=== PATIENT | female | born 1950 | race Caucasian/White ===

== ENCOUNTER 2017-07-05 23:59 | Emergency (ER) | payer OTHER ==
[~2017-07-05] VITALS: Ht 162.6 cm; Wt 86.4 kg
[~2017-07-05 23:59] MED LIST: ASCO500 PO; ATEN50TA PO; COLC0.6T69 PO; DIVA500T35 PO; ENAL5TAB PO; FLUP5TAB2 PO; FLUT16H NASAL; FURO20 PO; GLIP5TAB11 PO; LEVO150T11 PO; LORA10TA7 PO; METF500T4 PO; MONT10TA21 PO; MULT1CAP42 PO; OLAN10TA3 PO; OMEP20 PO; PARO20TA41 PO; POTA8TAB4 PO; SIMV40TA5 PO; TRAZ-147 PO
[2017-07-06] MEDS ORDERED: [UNRECOGNIZED DRUG - CODE] OU (00:18)
[2017-07-06] MEDS ORDERED: FLUO30CR36 TP (00:18)
[2017-07-06] MEDS ORDERED: TRIL4 PO (00:18)
[2017-07-06] MEDS ORDERED: LEVO125 PO (00:18)
[2017-07-06] MEDS ORDERED: BECL8.7H NASAL (00:18)
[2017-07-06] MEDS ORDERED: TOLT2CAP27 PO (00:18)
[2017-07-06] MEDS ORDERED: METF500T4 PO (00:18)
[2017-07-06 01:03] LABS: BASOPHILS % (AUTO) 0.7 % (0.0-2.0); EOSINOPHILS % (AUTO) 0.9 % (1.0-6.0); HEMATOCRIT 35.5 % (36-46); HEMOGLOBIN 12.2 g/dL (12.0-16.0); LYMPHOCYTES # (AUTO) 1.4 K/uL (1.0-4.8); LYMPHOCYTES % (AUTO) 40.7 % (22.0-44.0); MEAN CORPUSCULAR HEMOGLOBIN 30.8 pg (26.0-34.0); MEAN CORPUSCULAR HGB CONC 34.3 G/dL (31.0-37.0); MEAN CORPUSCULAR VOLUME 90 fL (80-100); MONOCYTES # (AUTO) 0.5 K/uL (0.1-1.0); MONOCYTES % (AUTO) 13.5 % (2.0-9.0); NEUTROPHILS # (AUTO) 1.6 K/uL (1.8-7.7); NEUTROPHILS % (AUTO) 44.2 % (40.0-70.0); PLATELET COUNT (AUTO) 214 K/uL (150-450); RED BLOOD CELL COUNT(AUTO) 3.96 MIL/uL (4.00-5.20); RED CELL DISTRIBUTION WIDTH 15.1 % (11.5-14.5); WHITE BLOOD COUNT (AUTO) 3.5 K/uL (4.5-11.0)
[2017-07-06 01:16] LABS: ANION GAP 11 mmol/L (8-16); CARBON DIOXIDE 25 mmol/L (22-29); CHLORIDE 102 mmol/L (98-107); CREATININE 1.15 mg/dL (0.60-1.30); GLOMERULAR FILTR. RATE CALC 47 mL/min (>60); POTASSIUM 3.3 mmol/L (3.5-5.1); SODIUM SERUM 138 mmol/L (136-145); UREA NITROGEN, BLOOD 13 mg/dL (7-18)
[2017-07-06 01:24] LABS: AMMONIA 20 umol/L (11-32)
[2017-07-06 01:26] LABS: B-TYPE NATRIURETIC PEPTIDE 26 pg/mL (0-100); TROPONIN I < 0.02 ng/mL (0.00-0.05)
[2017-07-06 01:27] LABS: GLUCOSE,POINT OF CARE 132 MG/DL (70-110)
[2017-07-06 01:27] LABS: ALANINE AMINOTRANSFERASE 1900 U/L (12-78); BILIRUBIN,TOTAL 2.8 mg/dL (0.1-1.0); TOTAL PROTEIN, SERUM 5.9 g/dL (6.4-8.2)
[2017-07-06 01:28] LABS: ASPARTATE AMINOTRANSFERASE 1528 U/L (15-37)
[2017-07-06] MEDS ORDERED: SODIUM CHLORIDE 0.9% 1,000 ML IV ONE (01:45)
[2017-07-06 02:18] LABS: THYROID STIMULATING HORMONE 3.64 uIU/mL (0.36-3.74)
[2017-07-06] MEDS ORDERED: CefTRIAXone 1 GM/DEXTROSE 50 ML IV ONE (03:15)
[2017-07-06] MEDS ORDERED: AZITHROMYCIN 500 MG/NS 250 ML IV ONE (03:15)
[2017-07-06] MEDS ORDERED: DEXTROSE 50%-WATER 25 GM/50 ML SYRINGE IVP PRN (05:30)
[2017-07-06] MEDS ORDERED: TraZODone HCL 100 MG TABLET PO PRN (05:30)
[2017-07-06] MEDS ORDERED: INSULIN ASPART 100 UNITS/ML SQ PRN (05:30)
[2017-07-06] MEDS ORDERED: ONDANSETRON HCL 4 MG/2 ML VIAL IVP PRN (05:45)
[2017-07-06] MEDS ORDERED: IPRATROPIUM BROMIDE 0.5 MG/2.5 ML NEB SOLUTION NEB PRN (05:45)
[2017-07-06] MEDS ORDERED: ALBUTEROL SULFATE 2.5 MG/0.5 ML NEB SOLUTION NEB PRN (05:45)
[2017-07-06] MEDS ORDERED: BISACODYL 10 MG RECTAL RECTAL SUPPOSITORY PR PRN (05:45)
[2017-07-06] MEDS ORDERED: MAGNESIUM HYDROXIDE SUSPENSION 30 ML UDCUP PO PRN (05:45)
[2017-07-06 05:51] LABS: BASOPHILS % (AUTO) 0.8 % (0.0-2.0); EOSINOPHILS % (AUTO) 0.9 % (1.0-6.0); HEMATOCRIT 34.4 % (36-46); HEMOGLOBIN 11.8 g/dL (12.0-16.0); LYMPHOCYTES # (AUTO) 1.3 K/uL (1.0-4.8); LYMPHOCYTES % (AUTO) 38.7 % (22.0-44.0); MEAN CORPUSCULAR HEMOGLOBIN 30.6 pg (26.0-34.0); MEAN CORPUSCULAR HGB CONC 34.4 G/dL (31.0-37.0); MEAN CORPUSCULAR VOLUME 89 fL (80-100); MONOCYTES # (AUTO) 0.4 K/uL (0.1-1.0); MONOCYTES % (AUTO) 13.8 % (2.0-9.0); NEUTROPHILS # (AUTO) 1.5 K/uL (1.8-7.7); NEUTROPHILS % (AUTO) 45.8 % (40.0-70.0); PLATELET COUNT (AUTO) 209 K/uL (150-450); RED BLOOD CELL COUNT(AUTO) 3.86 MIL/uL (4.00-5.20); RED CELL DISTRIBUTION WIDTH 15.3 % (11.5-14.5); WHITE BLOOD COUNT (AUTO) 3.3 K/uL (4.5-11.0)
[2017-07-06 05:52] LABS: ANION GAP 10 mmol/L (8-16); POTASSIUM 3.5 mmol/L (3.5-5.1); UREA NITROGEN, BLOOD 12 mg/dL (7-18)
[2017-07-06 05:53] LABS: CALCIUM, TOTAL 7.5 mg/dL (8.8-10.5); CARBON DIOXIDE 26 mmol/L (22-29); CHLORIDE 104 mmol/L (98-107); CREATININE 0.91 mg/dL (0.60-1.30); GLOMERULAR FILTR. RATE CALC > 60 mL/min (>60); SODIUM SERUM 140 mmol/L (136-145)
[2017-07-06 05:55] LABS: HEMOGLOBIN A1C 7.1 % (4.5-6.2)
[2017-07-06 06:19] LABS: ALANINE AMINOTRANSFERASE 1832 U/L (12-78); ALBUMIN 1.9 g/dL (3.4-5.0); BILIRUBIN,TOTAL 2.8 mg/dL (0.1-1.0); PHOSPHORUS 2.3 mg/dL (2.5-4.9); THYROID STIMULATING HORMONE 3.69 uIU/mL (0.36-3.74); TOTAL PROTEIN, SERUM 5.7 g/dL (6.4-8.2)
[2017-07-06] MEDS ORDERED: LEVOTHYROXINE SODIUM 125 MCG TABLET PO SCH (06:30)
[2017-07-06 06:34] LABS: ASPARTATE AMINOTRANSFERASE 1449 U/L (15-37)
[2017-07-06 06:43] LABS: ACETAMINOPHEN 2 mcg/mL (10-30)
[2017-07-06 07:19] LABS: PROCALCITONIN (PCT) 0.59 ng/mL (<0.50)
[2017-07-06 07:41] VITALS: BP 133/81
[2017-07-06] MEDS ORDERED: PANTOPRAZOLE SODIUM 40 MG DR TABLET PO SCH (09:00)
[2017-07-06] MEDS ORDERED: GLY OU SCH (09:00)
[2017-07-06] MEDS ORDERED: MONTELUKAST SODIUM 10 MG TABLET PO SCH (09:00)
[2017-07-06] MEDS ORDERED: DOCUSATE SODIUM 100 MG CAPSULE PO SCH (09:00)
[2017-07-06] MEDS ORDERED: PERPHENAZINE 4 MG TABLET PO SCH (09:00)
[2017-07-06] MEDS ORDERED: DIVALPROEX SODIUM 500 MG DR TABLET PO SCH (09:00)
[2017-07-06] MEDS ORDERED: HEPARIN SODIUM,PORCINE 5,000 UNITS/ML VIAL SQ SCH (09:00)
[2017-07-06] MEDS ORDERED: [UNRECOGNIZED DRUG - OTHER] OU SCH (09:00)
[2017-07-06] MEDS ORDERED: PARoxetine HCL 20 MG TABLET PO SCH (09:00)
[2017-07-06] MEDS ORDERED: BECLOMETHASONE DIPROPIONATE 160 MCG NASAL SCH (09:00)
[2017-07-06] MEDS ORDERED: TOLTERODINE TARTRATE 2 MG ER CAPSULE PO SCH (09:00)
[2017-07-06] MEDS ORDERED: PHENYLEPHRINE OU SCH (09:00)
[2017-07-06] MEDS ORDERED: MULTIVITAMINS WITH MINERALS, THERAPEUTIC TABLET PO SCH (09:00)
[2017-07-07] MEDS ORDERED: CefTRIAXone 1 GM/DEXTROSE 50 ML IV SCH (03:00)
[2017-07-07] MEDS ORDERED: AZITHROMYCIN 500 MG/NS 250 ML IV SCH (04:00)
[2017-07-07 08:06] LABS: HEPATITIS Bs ANTIGEN SCREEN P Negative (Negative); HEPATITIS C AB SCREEN 0.1 s/co ratio (0.0-0.9)
[2017-07-08] MEDS ORDERED: FLUOROURACIL TP SCH (09:00)
[2017-07-08 22:59] LABS: MYCOPLASMA AB IGG 305 U/mL (0-99)
== END 2017-07-06 09:00 | disposition other institution (70) ==
LOC: EMS 07-06 00:01 → UNDOADMIN 07-06 04:30 → 5S 07-06 04:30 → EMS 07-06 09:00
DX: J44.0 Chronic obstructive pulmonary disease with (acute) lower respiratory infection (principal); F79 Unspecified intellectual disabilities; R74.0 Nonspecific elevation of levels of transaminase and lactic acid dehydrogenase [LDH]; E80.6 Other disorders of bilirubin metabolism; E86.0 Dehydration; E11.65 Type 2 diabetes mellitus with hyperglycemia; I10 Essential (primary) hypertension; R62.7 Adult failure to thrive; Z79.899 Other long term (current) drug therapy
CPT/HCPCS: 36415; 70450; 71010; 74176; 80053; 80061; 80074; 82140; 82962; 83036; 83735; 83880; 84100; 84145; 84439; 84443; 84484; 85025; 87040; 87798; 93005; 96361; 96365; 96367; 99285; G0480; G0481; J0456; J0696; J7030

== ENCOUNTER → 2017-11-13 | Outpatient (CLI) | payer OTHER ==
[~2017-11-13] MED LIST changes: -ASCO500 PO; -ATEN50TA PO; +BECL8.7H NASAL; -COLC0.6T69 PO; -ENAL5TAB PO; +FLUO30CR36 TP; -FLUP5TAB2 PO; -FLUT16H NASAL; -GLIP5TAB11 PO; +LEVO125 PO; -LEVO150T11 PO; -LORA10TA7 PO; -OLAN10TA3 PO; -OMEP20 PO; +PARO-66 PO; -PARO20TA41 PO; -POTA8TAB4 PO; +TOLT2CAP27 PO; +TRIL4 PO; +[UNRECOGNIZED DRUG - CODE] OU
== END | disposition home or self-care (01) ==
LOC: RADPV 10:10
PROVIDERS: ATTEND Internal Medicine
DX: M20.11 Hallux valgus (acquired), right foot (principal); M19.071 Primary osteoarthritis, right ankle and foot; M77.31 Calcaneal spur, right foot; M21.6X1 Other acquired deformities of right foot

== ENCOUNTER 2019-07-20 08:22 | Emergency (ER) | payer OTHER ==
[~2019-07-20] VITALS: Ht 160 cm; Wt 86.4 kg
[~2019-07-20 08:22] MED LIST changes: +DIVA-78 PO; -DIVA500T35 PO; +METF-960 PO; -METF500T4 PO; +TOLT2CAP PO; -TOLT2CAP27 PO; -TRAZ-147 PO; +TRAZ-186 PO
[2019-07-20] MEDS ORDERED: OLAN10TA3 PO (08:31)
[2019-07-20 09:06] LABS: BASOPHILS % (AUTO) 0.7 % (0.0-2.0); EOSINOPHILS % (AUTO) 0.2 % (1.0-6.0); HEMATOCRIT 34.7 % (36-46); HEMOGLOBIN 11.6 g/dL (12.0-16.0); LYMPHOCYTES # (AUTO) 1.2 K/uL (1.0-4.8); MEAN CORPUSCULAR HEMOGLOBIN 31.3 pg (26.0-34.0); MEAN CORPUSCULAR HGB CONC 33.4 G/dL (31.0-37.0); MEAN CORPUSCULAR VOLUME 94 fL (80-100); MONOCYTES # (AUTO) 0.9 K/uL (0.1-1.0); MONOCYTES % (AUTO) 14.7 % (2.0-9.0); NEUTROPHILS # (AUTO) 3.9 K/uL (1.8-7.7); NEUTROPHILS % (AUTO) 64.4 % (40.0-70.0); PLATELET COUNT (AUTO) 158 K/uL (150-450); RED CELL DISTRIBUTION WIDTH 14.1 % (11.5-14.5)
[2019-07-20 09:17] LABS: CREATININE 1.58 mg/dL (0.60-1.30); POTASSIUM 3.9 mmol/L (3.5-5.1)
[2019-07-20 09:20] LABS: PROTHROMBIN TIME 10.8 SEC (9.4-11.6)
[2019-07-20 09:23] LABS: ALBUMIN 2.5 g/dL (3.4-5.0); BILIRUBIN,TOTAL 0.3 mg/dL (0.1-1.0); TOTAL PROTEIN, SERUM 6.8 g/dL (6.4-8.2)
[2019-07-20 10:43] LABS: APPEARANCE,URINE CLEAR (CLEAR); BILIRUBIN,URINE NEGATIVE (NEGATIVE); GLUCOSE, URINE (UA) NEGATIVE (NEGATIVE); KETONES,URINE NEGATIVE (NEGATIVE); LEUKOCYTE ESTERASE ,URINE TRACE (NEGATIVE); NITRATE,URINE NEGATIVE (NEGATIVE); OCCULT BLOOD,URINE NEGATIVE (NEGATIVE); PROTEIN,URINE NEGATIVE (NEGATIVE); UROBILINOGEN,URINE 0.2 mg/dL (<=1.0)
[2019-07-20 10:53] LABS: BACTERIA,URINE None Seen /HPF (None Seen); RBC,URINE None Seen /HPF (0-2); SQUAMOUS EPITHELIAL CELL,UR Few /LPF (None Seen); WBC,URINE 0-2 /HPF (0-5)
[2019-07-20 11:00] VITALS: BP 131/64
== END 2019-07-20 11:15 | disposition home or self-care (01) ==
LOC: EMS 08:23
DX: R10.13 Epigastric pain (principal); I10 Essential (primary) hypertension; E11.9 Type 2 diabetes mellitus without complications; E03.9 Hypothyroidism, unspecified; F20.9 Schizophrenia, unspecified; F31.9 Bipolar disorder, unspecified; J45.909 Unspecified asthma, uncomplicated; Z79.899 Other long term (current) drug therapy; Z79.84 Long term (current) use of oral hypoglycemic drugs
CPT/HCPCS: 93005

== ENCOUNTER 2020-02-02 12:22 | Emergency (ER) | payer OTHER ==
[~2020-02-02] VITALS: Ht 160 cm; Wt 77.0 kg
[~2020-02-02 12:22] MED LIST changes: -FLUO30CR36 TP; +OLAN10TA3 PO; +SIMV-46 PO; -SIMV40TA5 PO
[2020-02-02] MEDS ORDERED: FURO20 PO (12:38)
[2020-02-02 14:09] LABS: GLUCOMETER DEV NAME(LOC) AHU.; GLUCOSE,POINT OF CARE 115 MG/DL (70-110)
[2020-02-02 16:03] VITALS: BP 124/56
== END 2020-02-02 18:25 | disposition home or self-care (01) ==
LOC: EMS 12:27
DX: B34.9 Viral infection, unspecified (principal); E11.9 Type 2 diabetes mellitus without complications; I10 Essential (primary) hypertension; F20.9 Schizophrenia, unspecified; F32.9 Major depressive disorder, single episode, unspecified; Z79.899 Other long term (current) drug therapy; Z98.890 Other specified postprocedural states

== ENCOUNTER 2020-08-27 10:57 | Emergency (ER) | payer OTHER ==
[~2020-08-27] VITALS: Ht 162.6 cm; Wt 72.7 kg
[~2020-08-27 10:57] MED LIST changes: +DIVA-112 PO; -DIVA-78 PO; +MONT-35 PO; -MONT10TA21 PO
[2020-08-27] MEDS ORDERED: 0.9% SODIUM CHLORIDE 10 ML SYRINGE IVP PRN (11:30)
[2020-08-27 11:33] LABS: GLUCOSE,POINT OF CARE 141 MG/DL (70-110)
[2020-08-27 11:46] LABS: EOSINOPHILS % (AUTO) 0.7 % (1.0-6.0); HEMATOCRIT 38.8 % (36-46); HEMOGLOBIN 13.1 g/dL (12.0-16.0); LYMPHOCYTES # (AUTO) 3.2 K/uL (1.0-4.8); LYMPHOCYTES % (AUTO) 43.3 % (22.0-44.0); MEAN CORPUSCULAR HEMOGLOBIN 31.4 pg (26.0-34.0); MEAN CORPUSCULAR HGB CONC 33.9 G/dL (31.0-37.0); MEAN CORPUSCULAR VOLUME 93 fL (80-100); MONOCYTES # (AUTO) 0.6 K/uL (0.1-1.0); MONOCYTES % (AUTO) 8.4 % (2.0-9.0); NEUTROPHILS # (AUTO) 3.5 K/uL (1.8-7.7); NEUTROPHILS % (AUTO) 46.6 % (40.0-70.0); PLATELET COUNT (AUTO) 273 K/uL (150-450); RED BLOOD CELL COUNT(AUTO) 4.18 MIL/uL (4.00-5.20); RED CELL DISTRIBUTION WIDTH 13.4 % (11.5-14.5)
[2020-08-27 11:58] LABS: ANION GAP 10 mmol/L (8-16); CALCIUM, TOTAL 9.8 mg/dL (8.8-10.5); CARBON DIOXIDE 30 mmol/L (22-29); CHLORIDE 106 mmol/L (98-107); CREATININE 1.45 mg/dL (0.60-1.30); GLOMERULAR FILTR. RATE CALC 36 mL/min (>60); GLUCOSE,RANDOM 146 mg/dL (70-110); POTASSIUM 4.3 mmol/L (3.5-5.1); SODIUM SERUM 146 mmol/L (136-145); UREA NITROGEN, BLOOD 37 mg/dL (7-18)
[2020-08-27 11:59] LABS: INR 1.1 (0.9-1.1); PROTHROMBIN TIME 11.5 SEC (9.4-11.6)
[2020-08-27 12:04] LABS: ALANINE AMINOTRANSFERASE 19 U/L (12-78); ALBUMIN 3.2 g/dL (3.4-5.0); ALKALINE PHOSPHATASE 65 U/L (46-116); ASPARTATE AMINOTRANSFERASE 16 U/L (15-37); BILIRUBIN,TOTAL 0.2 mg/dL (0.1-1.0); TOTAL PROTEIN, SERUM 7.2 g/dL (6.4-8.2); VALPROIC ACID 69 mcg/mL (50-100)
[2020-08-27 12:08] LABS: LACTIC ACID 3.4 mmol/L (0.4-2.0)
[2020-08-27 12:10] LABS: B-TYPE NATRIURETIC PEPTIDE 8 pg/mL (0-100)
[2020-08-27 12:12] LABS: APPEARANCE,URINE CLEAR (CLEAR); BILIRUBIN,URINE NEGATIVE (NEGATIVE); GLUCOSE, URINE (UA) NEGATIVE (NEGATIVE); KETONES,URINE TRACE mg/dL (NEGATIVE); LEUKOCYTE ESTERASE ,URINE NEGATIVE (NEGATIVE); NITRATE,URINE NEGATIVE (NEGATIVE); OCCULT BLOOD,URINE NEGATIVE (NEGATIVE); PH,URINE 5.5 (5.0-8.0); PROTEIN,URINE NEGATIVE (NEGATIVE); UROBILINOGEN,URINE 0.2 mg/dL (<=1.0)
[2020-08-27] MEDS ORDERED: SODIUM CHLORIDE 0.9% 1,000 ML IV ONE (12:15)
[2020-08-27 14:17] LABS: GLUCOSE,POINT OF CARE 108 MG/DL (70-110)
[2020-08-27 15:17] VITALS: BP 122/71
== END 2020-08-27 15:20 | disposition home or self-care (01) ==
LOC: EMS 10:59
DX: E86.0 Dehydration (principal); I10 Essential (primary) hypertension; E11.9 Type 2 diabetes mellitus without complications; E03.9 Hypothyroidism, unspecified; E78.00 Pure hypercholesterolemia, unspecified; F20.9 Schizophrenia, unspecified; F32.9 Major depressive disorder, single episode, unspecified; Z79.899 Other long term (current) drug therapy
CPT/HCPCS: 36415; 70450; 71045; 80053; 80164; 81003; 82962; 83605; 83880; 84484; 85025; 85610; 85730; 93005; 96360; 99285; J7030

== ENCOUNTER 2020-08-29 14:00 | Inpatient (IN) | payer OTHER, MEDICAID ==
[~2020-08-29] VITALS: Ht 165.1 cm; Wt 79.6 kg
[2020-08-29 15:08] LABS: MEAN CORPUSCULAR HGB CONC 32.8 G/dL (31.0-37.0); MONOCYTES # (AUTO) 0.7 K/uL (0.1-1.0)
[2020-08-29 15:10] LABS: ANION GAP 8 mmol/L (8-16); CARBON DIOXIDE 27 mmol/L (22-29); CHLORIDE 102 mmol/L (98-107); CREATININE 1.16 mg/dL (0.60-1.30); GLOMERULAR FILTR. RATE CALC 46 mL/min (>60); GLUCOSE,RANDOM 159 mg/dL (70-110); SODIUM SERUM 137 mmol/L (136-145); UREA NITROGEN, BLOOD 21 mg/dL (7-18)
[2020-08-29 15:17] LABS: ALANINE AMINOTRANSFERASE 17 U/L (12-78); ALBUMIN 2.9 g/dL (3.4-5.0); ALKALINE PHOSPHATASE 72 U/L (46-116); ASPARTATE AMINOTRANSFERASE 16 U/L (15-37); BILIRUBIN,TOTAL 0.2 mg/dL (0.1-1.0); TOTAL PROTEIN, SERUM 6.7 g/dL (6.4-8.2)
[2020-08-29 15:56] LABS: BASOPHILS % (AUTO) 0.9 % (0.0-2.0); EOSINOPHILS % (AUTO) 1.5 % (1.0-6.0); HEMATOCRIT 41.6 % (36-46); HEMOGLOBIN 13.7 g/dL (12.0-16.0); LYMPHOCYTES % (AUTO) 40.8 % (22.0-44.0); MEAN CORPUSCULAR HEMOGLOBIN 30.8 pg (26.0-34.0); MEAN CORPUSCULAR VOLUME 94 fL (80-100); MONOCYTES % (AUTO) 6.8 % (2.0-9.0); NEUTROPHILS # (AUTO) 4.9 K/uL (1.8-7.7); RED BLOOD CELL COUNT(AUTO) 4.44 MIL/uL (4.00-5.20); RED CELL DISTRIBUTION WIDTH 13.3 % (11.5-14.5)
[2020-08-29 15:59] LABS: AMPHET/METH SCREEN,URINE NEGATIVE (NEGATIVE); BARBITURATE SCREEN, URINE NEGATIVE (NEGATIVE); BENZODIAZEPINES SCREEN,URINE NEGATIVE (NEGATIVE); CANNABINOID SCREEN,URINE NEGATIVE (NEGATIVE); COCAINE SCREEN,URINE NEGATIVE (NEGATIVE); METHADONE SCREEN, URINE NEGATIVE (NEGATIVE); OPIATE SCREEN,URINE NEGATIVE (NEGATIVE)
[2020-08-29 16:00] LABS: PHENCYCLIDINE SCREEN,URINE NEGATIVE (NEGATIVE)
[2020-08-29 16:09] LABS: PLATELET COUNT (AUTO) 293 K/uL (150-450)
[2020-08-29] MEDS ORDERED: ChlorproMAZINE HCL 50 MG TABLET PO PRN (18:00)
[2020-08-29] MEDS ORDERED: MULT-248 PO (18:06)
[2020-08-29 19:12] LABS: GLUCOSE,POINT OF CARE 142 MG/DL (70-110)
[2020-08-29 19:57] LABS: COVID AG,FIA SOURCE NASAL SWAB
[2020-08-29 22:13] LABS: GLUCOSE,POINT OF CARE 134 MG/DL (70-110)
[2020-08-30] MEDS: ZOLPIDEM TARTRATE 5 MG TABLET PO PRN (01:11)
[2020-08-30] MEDS: LORazepam 0.5 MG TABLET PO PRN (01:11)
[2020-08-30 02:06] VITALS: BP 179/94
[2020-08-30 06:47] LABS: BASOPHILS % (AUTO) 0.9 % (0.0-2.0); EOSINOPHILS % (AUTO) 1.5 % (1.0-6.0); HEMOGLOBIN 13.1 g/dL (12.0-16.0); LYMPHOCYTES # (AUTO) 3.1 K/uL (1.0-4.8); MEAN CORPUSCULAR HGB CONC 33.6 G/dL (31.0-37.0); MEAN CORPUSCULAR VOLUME 92 fL (80-100); MONOCYTES # (AUTO) 0.5 K/uL (0.1-1.0); MONOCYTES % (AUTO) 7.1 % (2.0-9.0); NEUTROPHILS # (AUTO) 3.4 K/uL (1.8-7.7); NEUTROPHILS % (AUTO) 47.5 % (40.0-70.0); PLATELET COUNT (AUTO) 249 K/uL (150-450); RED BLOOD CELL COUNT(AUTO) 4.23 MIL/uL (4.00-5.20); RED CELL DISTRIBUTION WIDTH 13.6 % (11.5-14.5)
[2020-08-30 07:29] LABS: HEMOGLOBIN A1C 6.7 % (3.8-5.6)
[2020-08-30 07:41] LABS: CHOL/HDL RATIO 3.1 (3.9-5.7)
[2020-08-30 08:03] LABS: FREE T4 (FREE THYROXINE) 1.13 ng/dL (0.76-1.46); THYROID STIMULATING HORMONE 1.56 uIU/mL (0.36-3.74)
[2020-08-30 08:58] VITALS: BP 127/61
[2020-08-30] MEDS ORDERED: DOCUSATE SODIUM 100 MG CAPSULE PO PRN (11:00)
[2020-08-30] MEDS ORDERED: CloNIDine HCL 0.1 MG TABLET PO PRN (11:00)
[2020-08-30] MEDS ORDERED: ACETAMINOPHEN 325 MG TABLET PO PRN (11:00)
[2020-08-30] MEDS ORDERED: IBUPROFEN 600 MG TABLET PO PRN (11:00)
[2020-08-30] MEDS ORDERED: PETROLATUM,WHITE 28 GM JELLY TP PRN (11:00)
[2020-08-30] MEDS ORDERED: BENZOCAINE/MENTHOL LOZENGE PO PRN (11:00)
[2020-08-30] MEDS ORDERED: OMEPRAZOLE 20 MG CAPSULE PO PRN (11:00)
[2020-08-30] MEDS ORDERED: MAG HYDROX/AL HYDROX/SIMETH ES 30 ML SUSPENSION UDCUP PO PRN (11:00)
[2020-08-30] MEDS ORDERED: MAGNESIUM HYDROXIDE SUSPENSION 30 ML UDCUP PO PRN (11:00)
[2020-08-30] MEDS ORDERED: ONDANSETRON HCL 4 MG TABLET PO PRN (11:00)
[2020-08-30] MEDS ORDERED: ALBUTEROL SULFATE HFA 90 MCG/PUFF 8 GM INHALER IH PRN (11:00)
[2020-08-30] MEDS ORDERED: LOPERAMIDE HCL 2 MG CAPSULE PO PRN ×2 (11:00→12:00)
[2020-08-30] MEDS ORDERED: BACITRACIN 28 GM OINTMENT TP PRN (11:00)
[2020-08-30] MEDS ORDERED: DEXTROSE 50%-WATER 25 GM/50 ML SYRINGE IVP PRN (11:15)
[2020-08-30] MEDS ORDERED: PROMETHAZINE HCL 25 MG TABLET PO PRN (12:00)
[2020-08-30] MEDS ORDERED: OLANZapine 5 MG RAPDIS TABLET PO PRN (12:00)
[2020-08-30] MEDS ORDERED: HydrOXYzine PAMOATE 50 MG CAPSULE PO PRN (12:00)
[2020-08-30] MEDS ORDERED: TUBERCULIN, PURIFIED PROTEIN DERIVATIVE 5 TU/0.1 ML SYRINGE ID ONE (12:00)
[2020-08-30] MEDS: FUROSEMIDE 20 MG TABLET PO SCH (12:16)
[2020-08-30] MEDS: SIMVASTATIN 40 MG TABLET PO SCH (12:16)
[2020-08-30] MEDS: TOLTERODINE TARTRATE 2 MG ER CAPSULE PO SCH (12:17)
[2020-08-30] MEDS: MONTELUKAST SODIUM 10 MG TABLET PO SCH (12:17)
[2020-08-30 16:03] VITALS: BP 152/77
[2020-08-30] MEDS: THIAMINE 100 MG TABLET PO SCH (17:08)
[2020-08-30] MEDS: DIVALPROEX SODIUM 500 MG ER TABLET PO SCH (17:08)
[2020-08-30 17:14] LABS: GLUCOMETER DEV NAME(LOC) 3E.I 2; GLUCOSE,POINT OF CARE 298 MG/DL (70-110)
[2020-08-30] MEDS: INSULIN LISPRO 100 UNITS/ML SQ PRN ×2 (17:20→20:55)
[2020-08-30] MEDS: MetFORMIN HCL 500 MG TABLET PO SCH (17:35)
[2020-08-30] MEDS: OLANZapine 10 MG RAPDIS TABLET PO SCH (20:22)
[2020-08-30 20:54] LABS: GLUCOMETER DEV NAME(LOC) 3E.I 2; GLUCOSE,POINT OF CARE 182 MG/DL (70-110)
[2020-08-31 00:32] VITALS: BP 135/66
[2020-08-31 05:26] LABS: GLUCOMETER DEV NAME(LOC) 3E.I 2; GLUCOSE,POINT OF CARE 241 MG/DL (70-110)
[2020-08-31 05:45] VITALS: BP 143/108
[2020-08-31] MEDS: MetFORMIN HCL 500 MG TABLET PO SCH ×2 (06:59→16:48)
[2020-08-31] MEDS: LEVOTHYROXINE SODIUM 125 MCG TABLET PO SCH (06:59)
[2020-08-31] MEDS: INSULIN LISPRO 100 UNITS/ML SQ PRN ×4 (07:07→21:26)
[2020-08-31 08:48] VITALS: BP 160/92
[2020-08-31] MEDS ORDERED: FLUoxetine HCL 10 MG CAPSULE PO SCH (09:00)
[2020-08-31] MEDS ORDERED: MULTIVITAMINS WITH MINERALS, THERAPEUTIC TABLET PO SCH (09:00)
[2020-08-31] MEDS: FUROSEMIDE 20 MG TABLET PO SCH (09:46)
[2020-08-31] MEDS: FOLIC ACID 1 MG TABLET PO SCH (09:47)
[2020-08-31] MEDS: DIVALPROEX SODIUM 500 MG ER TABLET PO SCH ×2 (09:47→16:48)
[2020-08-31] MEDS: OMEGA-3/DHA/EPA/FISH OIL 1,000 MG CAPSULE PO SCH (09:47)
[2020-08-31] MEDS: THIAMINE 100 MG TABLET PO SCH ×2 (09:47→16:48)
[2020-08-31] MEDS: MULTIVITAMINS WITH MINERALS, THERAPEUTIC TABLET PO SCH (09:48)
[2020-08-31] MEDS: SIMVASTATIN 40 MG TABLET PO SCH (09:48)
[2020-08-31] MEDS: MONTELUKAST SODIUM 10 MG TABLET PO SCH (09:49)
[2020-08-31] MEDS: TOLTERODINE TARTRATE 2 MG ER CAPSULE PO SCH (09:50)
[2020-08-31 12:25] LABS: GLUCOMETER DEV NAME(LOC) 3E.I 2; GLUCOSE,POINT OF CARE 202 MG/DL (70-110)
[2020-08-31 16:06] VITALS: BP 140/89
[2020-08-31] MEDS: OLANZapine 10 MG RAPDIS TABLET PO SCH (20:29)
[2020-08-31 20:43] LABS: GLUCOMETER DEV NAME(LOC) 3E.I 2; GLUCOSE,POINT OF CARE 209 MG/DL (70-110)
[2020-08-31 20:48] LABS: GLUCOMETER DEV NAME(LOC) 3E.I 2; GLUCOSE,POINT OF CARE 253 MG/DL (70-110)
[2020-09-01 00:01] VITALS: BP 143/77
[2020-09-01] MEDS: LORazepam 0.5 MG TABLET PO PRN ×2 (00:01→20:17)
[2020-09-01] MEDS: ZOLPIDEM TARTRATE 5 MG TABLET PO PRN ×2 (00:01→22:38)
[2020-09-01 05:49] LABS: GLUCOMETER DEV NAME(LOC) 3E.I 2; GLUCOSE,POINT OF CARE 177 MG/DL (70-110)
[2020-09-01] MEDS: MetFORMIN HCL 500 MG TABLET PO SCH ×2 (06:51→17:17)
[2020-09-01] MEDS: LEVOTHYROXINE SODIUM 125 MCG TABLET PO SCH (06:51)
[2020-09-01] MEDS: INSULIN LISPRO 100 UNITS/ML SQ PRN ×4 (06:58→20:41)
[2020-09-01] MEDS: DIVALPROEX SODIUM 500 MG ER TABLET PO SCH ×3 (08:53→16:19)
[2020-09-01] MEDS: OMEGA-3/DHA/EPA/FISH OIL 1,000 MG CAPSULE PO SCH (08:53)
[2020-09-01] MEDS: FOLIC ACID 1 MG TABLET PO SCH (08:53)
[2020-09-01] MEDS: FLUoxetine HCL 20 MG CAPSULE PO SCH (08:53)
[2020-09-01] MEDS: MULTIVITAMINS WITH MINERALS, THERAPEUTIC TABLET PO SCH (08:54)
[2020-09-01] MEDS: MONTELUKAST SODIUM 10 MG TABLET PO SCH (08:54)
[2020-09-01] MEDS: FUROSEMIDE 20 MG TABLET PO SCH (08:54)
[2020-09-01] MEDS: THIAMINE 100 MG TABLET PO SCH ×2 (08:54→16:20)
[2020-09-01] MEDS: SIMVASTATIN 40 MG TABLET PO SCH (08:56)
[2020-09-01] MEDS: TOLTERODINE TARTRATE 2 MG ER CAPSULE PO SCH (08:56)
[2020-09-01 09:00] VITALS: BP 128/87
[2020-09-01 11:37] LABS: GLUCOMETER DEV NAME(LOC) 3E.I 2; GLUCOSE,POINT OF CARE 216 MG/DL (70-110)
[2020-09-01 16:01] VITALS: BP 138/88
[2020-09-01 16:39] LABS: GLUCOMETER DEV NAME(LOC) 3E.I 2; GLUCOSE,POINT OF CARE 234 MG/DL (70-110)
[2020-09-01] MEDS: OLANZapine 10 MG RAPDIS TABLET PO SCH (20:17)
[2020-09-01 20:47] LABS: GLUCOMETER DEV NAME(LOC) 3E.I 2; GLUCOSE,POINT OF CARE 270 MG/DL (70-110)
[2020-09-02 00:14] VITALS: BP 140/68
[2020-09-02 06:27] LABS: GLUCOMETER DEV NAME(LOC) 3E.I 2; GLUCOSE,POINT OF CARE 152 MG/DL (70-110)
[2020-09-02] MEDS: LEVOTHYROXINE SODIUM 125 MCG TABLET PO SCH (06:54)
[2020-09-02] MEDS: INSULIN LISPRO 100 UNITS/ML SQ PRN ×3 (06:54→21:01)
[2020-09-02] MEDS: MetFORMIN HCL 500 MG TABLET PO SCH ×2 (06:54→17:21)
[2020-09-02] MEDS: THIAMINE 100 MG TABLET PO SCH ×2 (08:15→17:22)
[2020-09-02] MEDS: DIVALPROEX SODIUM 500 MG ER TABLET PO SCH ×3 (08:15→17:21)
[2020-09-02] MEDS: MONTELUKAST SODIUM 10 MG TABLET PO SCH (08:15)
[2020-09-02] MEDS: MULTIVITAMINS WITH MINERALS, THERAPEUTIC TABLET PO SCH (08:15)
[2020-09-02] MEDS: OMEGA-3/DHA/EPA/FISH OIL 1,000 MG CAPSULE PO SCH (08:15)
[2020-09-02] MEDS: FOLIC ACID 1 MG TABLET PO SCH (08:15)
[2020-09-02] MEDS: TOLTERODINE TARTRATE 2 MG ER CAPSULE PO SCH (08:16)
[2020-09-02] MEDS: SIMVASTATIN 40 MG TABLET PO SCH (08:16)
[2020-09-02] MEDS: FLUoxetine HCL 20 MG CAPSULE PO SCH (08:16)
[2020-09-02] MEDS: FUROSEMIDE 20 MG TABLET PO SCH (08:16)
[2020-09-02 09:40] VITALS: BP 161/87
[2020-09-02 11:09] LABS: GLUCOMETER DEV NAME(LOC) 3E.I 2; GLUCOSE,POINT OF CARE 142 MG/DL (70-110)
[2020-09-02 16:02] VITALS: BP 138/87
[2020-09-02 17:31] LABS: GLUCOMETER DEV NAME(LOC) 3E.I 2; GLUCOSE,POINT OF CARE 102 MG/DL (70-110)
[2020-09-02] MEDS: OLANZapine 10 MG RAPDIS TABLET PO SCH (20:11)
[2020-09-02 20:26] LABS: GLUCOMETER DEV NAME(LOC) 3E.I 2; GLUCOSE,POINT OF CARE 218 MG/DL (70-110)
[2020-09-02] MEDS: ZOLPIDEM TARTRATE 5 MG TABLET PO PRN (21:59)
[2020-09-03 05:43] LABS: GLUCOMETER DEV NAME(LOC) 3E.I 2; GLUCOSE,POINT OF CARE 140 MG/DL (70-110)
[2020-09-03] MEDS: MetFORMIN HCL 500 MG TABLET PO SCH ×2 (06:41→17:03)
[2020-09-03] MEDS: INSULIN LISPRO 100 UNITS/ML SQ PRN ×4 (06:41→20:58)
[2020-09-03] MEDS: LEVOTHYROXINE SODIUM 125 MCG TABLET PO SCH (06:41)
[2020-09-03 08:46] VITALS: BP 118/62
[2020-09-03] MEDS: DIVALPROEX SODIUM 500 MG ER TABLET PO SCH ×3 (09:22→17:03)
[2020-09-03] MEDS: FUROSEMIDE 20 MG TABLET PO SCH (09:23)
[2020-09-03] MEDS: TOLTERODINE TARTRATE 2 MG ER CAPSULE PO SCH (09:23)
[2020-09-03] MEDS: FOLIC ACID 1 MG TABLET PO SCH (09:23)
[2020-09-03] MEDS: MONTELUKAST SODIUM 10 MG TABLET PO SCH (09:23)
[2020-09-03] MEDS: OMEGA-3/DHA/EPA/FISH OIL 1,000 MG CAPSULE PO SCH (09:23)
[2020-09-03] MEDS: MULTIVITAMINS WITH MINERALS, THERAPEUTIC TABLET PO SCH (09:24)
[2020-09-03] MEDS: FLUoxetine HCL 20 MG CAPSULE PO SCH (09:24)
[2020-09-03] MEDS: SIMVASTATIN 40 MG TABLET PO SCH (09:24)
[2020-09-03] MEDS: THIAMINE 100 MG TABLET PO SCH ×2 (09:25→17:03)
[2020-09-03 11:47] LABS: GLUCOMETER DEV NAME(LOC) 3E.I 2; GLUCOSE,POINT OF CARE 182 MG/DL (70-110)
[2020-09-03 16:02] VITALS: BP 148/77
[2020-09-03 16:36] LABS: GLUCOMETER DEV NAME(LOC) 3E.I 2; GLUCOSE,POINT OF CARE 228 MG/DL (70-110)
[2020-09-03] MEDS: OLANZapine 10 MG RAPDIS TABLET PO SCH (20:17)
[2020-09-03 20:32] LABS: GLUCOMETER DEV NAME(LOC) 3E.I 2; GLUCOSE,POINT OF CARE 163 MG/DL (70-110)
[2020-09-03] MEDS: ZOLPIDEM TARTRATE 5 MG TABLET PO PRN (22:46)
[2020-09-04] VITALS: BP 143/77
[2020-09-04] MEDS: LEVOTHYROXINE SODIUM 125 MCG TABLET PO SCH (06:45)
[2020-09-04] MEDS: MetFORMIN HCL 500 MG TABLET PO SCH ×2 (06:46→17:18)
[2020-09-04] MEDS: INSULIN LISPRO 100 UNITS/ML SQ PRN ×4 (06:47→20:32)
[2020-09-04] MEDS: FOLIC ACID 1 MG TABLET PO SCH (09:04)
[2020-09-04] MEDS: THIAMINE 100 MG TABLET PO SCH ×2 (09:04→15:56)
[2020-09-04] MEDS: MULTIVITAMINS WITH MINERALS, THERAPEUTIC TABLET PO SCH (09:05)
[2020-09-04] MEDS: OMEGA-3/DHA/EPA/FISH OIL 1,000 MG CAPSULE PO SCH (09:05)
[2020-09-04] MEDS: DIVALPROEX SODIUM 500 MG ER TABLET PO SCH ×3 (09:05→15:56)
[2020-09-04] MEDS: FUROSEMIDE 20 MG TABLET PO SCH (09:05)
[2020-09-04] MEDS: SIMVASTATIN 40 MG TABLET PO SCH (09:05)
[2020-09-04] MEDS: FLUoxetine HCL 20 MG CAPSULE PO SCH (09:05)
[2020-09-04] MEDS: MONTELUKAST SODIUM 10 MG TABLET PO SCH (09:05)
[2020-09-04] MEDS: TOLTERODINE TARTRATE 2 MG ER CAPSULE PO SCH (09:05)
[2020-09-04 09:21] LABS: GLUCOMETER DEV NAME(LOC) 3E.I 2; GLUCOSE,POINT OF CARE 126 MG/DL (70-110)
[2020-09-04 09:44] VITALS: BP 157/73
[2020-09-04 12:02] LABS: GLUCOMETER DEV NAME(LOC) 3E.I 2; GLUCOSE,POINT OF CARE 211 MG/DL (70-110)
[2020-09-04 16:05] VITALS: BP 152/96
[2020-09-04 16:05] LABS: GLUCOMETER DEV NAME(LOC) 3E.I 2; GLUCOSE,POINT OF CARE 154 MG/DL (70-110)
[2020-09-04] MEDS: AMANTADINE HCL 100 MG CAPSULE PO SCH (17:18)
[2020-09-04] MEDS: OLANZapine 10 MG RAPDIS TABLET PO SCH (20:02)
[2020-09-04] MEDS: LORazepam 0.5 MG TABLET PO PRN (20:02)
[2020-09-05 01:51] LABS: GLUCOMETER DEV NAME(LOC) 3E.I 2; GLUCOSE,POINT OF CARE 160 MG/DL (70-110)
[2020-09-05 06:28] LABS: BASOPHILS % (AUTO) 1.1 % (0.0-2.0); EOSINOPHILS % (AUTO) 2.2 % (1.0-6.0); HEMATOCRIT 35.9 % (36-46); HEMOGLOBIN 12.9 g/dL (12.0-16.0); LYMPHOCYTES # (AUTO) 4.3 K/uL (1.0-4.8); LYMPHOCYTES % (AUTO) 48.4 % (22.0-44.0); MEAN CORPUSCULAR HEMOGLOBIN 32.4 pg (26.0-34.0); MEAN CORPUSCULAR VOLUME 90 fL (80-100); MONOCYTES # (AUTO) 0.6 K/uL (0.1-1.0); MONOCYTES % (AUTO) 7.2 % (2.0-9.0); NEUTROPHILS # (AUTO) 3.6 K/uL (1.8-7.7); NEUTROPHILS % (AUTO) 41.1 % (40.0-70.0); PLATELET COUNT (AUTO) 270 K/uL (150-450); RED BLOOD CELL COUNT(AUTO) 3.99 MIL/uL (4.00-5.20); RED CELL DISTRIBUTION WIDTH 13.4 % (11.5-14.5)
[2020-09-05] MEDS: LEVOTHYROXINE SODIUM 125 MCG TABLET PO SCH (06:48)
[2020-09-05] MEDS: MetFORMIN HCL 500 MG TABLET PO SCH ×2 (06:48→16:14)
[2020-09-05] MEDS: INSULIN LISPRO 100 UNITS/ML SQ PRN ×3 (06:54→20:58)
[2020-09-05 07:01] LABS: ALBUMIN 2.5 g/dL (3.4-5.0); BILIRUBIN,TOTAL 0.2 mg/dL (0.1-1.0); CALCIUM, TOTAL 9.3 mg/dL (8.8-10.5); CREATININE 1.06 mg/dL (0.60-1.30); POTASSIUM 4.5 mmol/L (3.5-5.1); TOTAL PROTEIN, SERUM 5.6 g/dL (6.4-8.2)
[2020-09-05] MEDS: DIVALPROEX SODIUM 500 MG ER TABLET PO SCH ×3 (08:27→16:13)
[2020-09-05] MEDS: FUROSEMIDE 20 MG TABLET PO SCH (08:27)
[2020-09-05] MEDS: FOLIC ACID 1 MG TABLET PO SCH (08:27)
[2020-09-05] MEDS: THIAMINE 100 MG TABLET PO SCH ×2 (08:27→16:13)
[2020-09-05] MEDS: MULTIVITAMINS WITH MINERALS, THERAPEUTIC TABLET PO SCH (08:27)
[2020-09-05] MEDS: AMANTADINE HCL 100 MG CAPSULE PO SCH ×2 (08:28→16:14)
[2020-09-05] MEDS: TOLTERODINE TARTRATE 2 MG ER CAPSULE PO SCH (08:29)
[2020-09-05] MEDS: SIMVASTATIN 40 MG TABLET PO SCH (08:29)
[2020-09-05] MEDS: MONTELUKAST SODIUM 10 MG TABLET PO SCH (08:29)
[2020-09-05] MEDS: OMEGA-3/DHA/EPA/FISH OIL 1,000 MG CAPSULE PO SCH (08:31)
[2020-09-05] MEDS: FLUoxetine HCL 10 MG CAPSULE PO SCH (08:32)
[2020-09-05 08:36] VITALS: BP 179/107
[2020-09-05 11:26] LABS: GLUCOMETER DEV NAME(LOC) 3E.I 2; GLUCOSE,POINT OF CARE 117 MG/DL (70-110)
[2020-09-05 11:26] LABS: GLUCOMETER DEV NAME(LOC) 3E.I 2; GLUCOSE,POINT OF CARE 133 MG/DL (70-110)
[2020-09-05 16:00] VITALS: BP 130/83
[2020-09-05 16:37] LABS: GLUCOMETER DEV NAME(LOC) 3E.I 2; GLUCOSE,POINT OF CARE 101 MG/DL (70-110)
[2020-09-05] MEDS: OLANZapine 10 MG RAPDIS TABLET PO SCH (20:42)
[2020-09-05 20:52] LABS: GLUCOMETER DEV NAME(LOC) 3E.I 2; GLUCOSE,POINT OF CARE 161 MG/DL (70-110)
[2020-09-06] VITALS: BP 145/85
[2020-09-06] MEDS: LORazepam 0.5 MG TABLET PO PRN ×2 (03:50→20:56)
[2020-09-06 06:12] LABS: GLUCOMETER DEV NAME(LOC) 3E.I 2; GLUCOSE,POINT OF CARE 132 MG/DL (70-110)
[2020-09-06] MEDS: MetFORMIN HCL 500 MG TABLET PO SCH ×2 (06:46→17:20)
[2020-09-06] MEDS: LEVOTHYROXINE SODIUM 125 MCG TABLET PO SCH (06:46)
[2020-09-06] MEDS: INSULIN LISPRO 100 UNITS/ML SQ PRN ×4 (07:27→21:04)
[2020-09-06 08:07] VITALS: BP 151/80
[2020-09-06] MEDS: LISINOPRIL 20 MG TABLET PO SCH (08:54)
[2020-09-06] MEDS: MULTIVITAMINS WITH MINERALS, THERAPEUTIC TABLET PO SCH (08:54)
[2020-09-06] MEDS: OMEGA-3/DHA/EPA/FISH OIL 1,000 MG CAPSULE PO SCH (08:54)
[2020-09-06] MEDS: DIVALPROEX SODIUM 500 MG ER TABLET PO SCH ×3 (08:54→16:38)
[2020-09-06] MEDS: TOLTERODINE TARTRATE 2 MG ER CAPSULE PO SCH (08:55)
[2020-09-06] MEDS: FUROSEMIDE 20 MG TABLET PO SCH (08:55)
[2020-09-06] MEDS: THIAMINE 100 MG TABLET PO SCH ×2 (08:55→16:38)
[2020-09-06] MEDS: FLUoxetine HCL 10 MG CAPSULE PO SCH (08:56)
[2020-09-06] MEDS: AMANTADINE HCL 100 MG CAPSULE PO SCH ×2 (08:56→16:38)
[2020-09-06] MEDS: SIMVASTATIN 40 MG TABLET PO SCH (08:56)
[2020-09-06] MEDS: MONTELUKAST SODIUM 10 MG TABLET PO SCH (08:57)
[2020-09-06] MEDS: FOLIC ACID 1 MG TABLET PO SCH (08:58)
[2020-09-06 11:36] LABS: GLUCOMETER DEV NAME(LOC) 3E.I 2; GLUCOSE,POINT OF CARE 132 MG/DL (70-110)
[2020-09-06 16:07] LABS: GLUCOMETER DEV NAME(LOC) 3E.I 2; GLUCOSE,POINT OF CARE 256 MG/DL (70-110)
[2020-09-06 16:18] VITALS: BP 100/66
[2020-09-06] MEDS: OLANZapine 10 MG RAPDIS TABLET PO SCH (20:56)
[2020-09-06 21:13] LABS: GLUCOMETER DEV NAME(LOC) 3E.I 2; GLUCOSE,POINT OF CARE 153 MG/DL (70-110)
[2020-09-07 05:18] LABS: GLUCOMETER DEV NAME(LOC) 3E.I 2; GLUCOSE,POINT OF CARE 146 MG/DL (70-110)
[2020-09-07] MEDS: MetFORMIN HCL 500 MG TABLET PO SCH ×2 (06:54→16:57)
[2020-09-07] MEDS: LEVOTHYROXINE SODIUM 125 MCG TABLET PO SCH (06:54)
[2020-09-07] MEDS: INSULIN LISPRO 100 UNITS/ML SQ PRN ×3 (07:01→17:42)
[2020-09-07 08:14] VITALS: BP 132/80
[2020-09-07] MEDS: DIVALPROEX SODIUM 500 MG ER TABLET PO SCH ×3 (08:20→16:57)
[2020-09-07] MEDS: FUROSEMIDE 20 MG TABLET PO SCH (08:20)
[2020-09-07] MEDS: OMEGA-3/DHA/EPA/FISH OIL 1,000 MG CAPSULE PO SCH (08:20)
[2020-09-07] MEDS: FOLIC ACID 1 MG TABLET PO SCH (08:21)
[2020-09-07] MEDS: MULTIVITAMINS WITH MINERALS, THERAPEUTIC TABLET PO SCH (08:21)
[2020-09-07] MEDS: THIAMINE 100 MG TABLET PO SCH ×2 (08:21→16:57)
[2020-09-07] MEDS: FLUoxetine HCL 20 MG CAPSULE PO SCH (08:21)
[2020-09-07] MEDS: MONTELUKAST SODIUM 10 MG TABLET PO SCH (08:21)
[2020-09-07] MEDS: TOLTERODINE TARTRATE 2 MG ER CAPSULE PO SCH (08:21)
[2020-09-07] MEDS: AMANTADINE HCL 100 MG CAPSULE PO SCH ×2 (08:21→16:57)
[2020-09-07] MEDS: LISINOPRIL 20 MG TABLET PO SCH (08:21)
[2020-09-07] MEDS: SIMVASTATIN 40 MG TABLET PO SCH (08:28)
[2020-09-07 11:32] LABS: GLUCOMETER DEV NAME(LOC) 3E.I 2; GLUCOSE,POINT OF CARE 115 MG/DL (70-110)
[2020-09-07 16:16] VITALS: BP 140/88
[2020-09-07 17:27] LABS: GLUCOMETER DEV NAME(LOC) 3E.I 2; GLUCOSE,POINT OF CARE 238 MG/DL (70-110)
[2020-09-07] MEDS: OLANZapine 10 MG RAPDIS TABLET PO SCH (20:14)
[2020-09-07 21:04] LABS: GLUCOMETER DEV NAME(LOC) 3E.I 2; GLUCOSE,POINT OF CARE 121 MG/DL (70-110)
[2020-09-08 05:26] LABS: GLUCOMETER DEV NAME(LOC) 3E.I 2; GLUCOSE,POINT OF CARE 135 MG/DL (70-110)
[2020-09-08] MEDS: MetFORMIN HCL 500 MG TABLET PO SCH ×2 (06:35→16:50)
[2020-09-08] MEDS: LEVOTHYROXINE SODIUM 125 MCG TABLET PO SCH (06:35)
[2020-09-08] MEDS: INSULIN LISPRO 100 UNITS/ML SQ PRN ×4 (06:46→21:11)
[2020-09-08 08:08] VITALS: BP 119/67
[2020-09-08] MEDS: THIAMINE 100 MG TABLET PO SCH ×2 (09:01→16:30)
[2020-09-08] MEDS: FOLIC ACID 1 MG TABLET PO SCH (09:01)
[2020-09-08] MEDS: FLUoxetine HCL 20 MG CAPSULE PO SCH (09:01)
[2020-09-08] MEDS: LISINOPRIL 20 MG TABLET PO SCH (09:01)
[2020-09-08] MEDS: OMEGA-3/DHA/EPA/FISH OIL 1,000 MG CAPSULE PO SCH (09:01)
[2020-09-08] MEDS: FUROSEMIDE 20 MG TABLET PO SCH (09:01)
[2020-09-08] MEDS: DIVALPROEX SODIUM 500 MG ER TABLET PO SCH ×3 (09:01→16:30)
[2020-09-08] MEDS: MONTELUKAST SODIUM 10 MG TABLET PO SCH (09:01)
[2020-09-08] MEDS: MULTIVITAMINS WITH MINERALS, THERAPEUTIC TABLET PO SCH (09:01)
[2020-09-08] MEDS: AMANTADINE HCL 100 MG CAPSULE PO SCH ×2 (09:02→16:30)
[2020-09-08] MEDS: SIMVASTATIN 40 MG TABLET PO SCH (09:02)
[2020-09-08] MEDS: TOLTERODINE TARTRATE 2 MG ER CAPSULE PO SCH (09:02)
[2020-09-08] MEDS ORDERED: DIVA-80 PO (10:19)
[2020-09-08] MEDS ORDERED: AMAN-6 PO (10:19)
[2020-09-08] MEDS ORDERED: OMEG-135 PO (10:19)
[2020-09-08] MEDS ORDERED: FLUO-191 PO (10:19)
[2020-09-08] MEDS ORDERED: OLAN10TA22 PO (10:19)
[2020-09-08 11:25] LABS: GLUCOMETER DEV NAME(LOC) 3E.I 2; GLUCOSE,POINT OF CARE 146 MG/DL (70-110)
[2020-09-08 16:37] VITALS: BP 121/60
[2020-09-08 17:24] LABS: GLUCOMETER DEV NAME(LOC) 3E.I 2; GLUCOSE,POINT OF CARE 187 MG/DL (70-110)
[2020-09-08] MEDS: OLANZapine 10 MG RAPDIS TABLET PO SCH (20:28)
[2020-09-08 21:20] LABS: GLUCOMETER DEV NAME(LOC) 3E.I 2; GLUCOSE,POINT OF CARE 152 MG/DL (70-110)
[2020-09-09 00:04] VITALS: BP 112/62
[2020-09-09 05:38] LABS: GLUCOMETER DEV NAME(LOC) 3E.I 2; GLUCOSE,POINT OF CARE 141 MG/DL (70-110)
[2020-09-09] MEDS: LEVOTHYROXINE SODIUM 125 MCG TABLET PO SCH (06:52)
[2020-09-09] MEDS: MetFORMIN HCL 500 MG TABLET PO SCH ×2 (06:52→16:40)
[2020-09-09] MEDS: INSULIN LISPRO 100 UNITS/ML SQ PRN ×4 (06:53→21:18)
[2020-09-09] MEDS: FOLIC ACID 1 MG TABLET PO SCH (08:03)
[2020-09-09] MEDS: SIMVASTATIN 40 MG TABLET PO SCH (08:03)
[2020-09-09] MEDS: MULTIVITAMINS WITH MINERALS, THERAPEUTIC TABLET PO SCH (08:03)
[2020-09-09] MEDS: MONTELUKAST SODIUM 10 MG TABLET PO SCH (08:03)
[2020-09-09] MEDS: FUROSEMIDE 20 MG TABLET PO SCH (08:03)
[2020-09-09] MEDS: LISINOPRIL 20 MG TABLET PO SCH (08:03)
[2020-09-09] MEDS: TOLTERODINE TARTRATE 2 MG ER CAPSULE PO SCH (08:03)
[2020-09-09] MEDS: AMANTADINE HCL 100 MG CAPSULE PO SCH ×2 (08:04→16:40)
[2020-09-09] MEDS: FLUoxetine HCL 20 MG CAPSULE PO SCH (08:04)
[2020-09-09] MEDS: OMEGA-3/DHA/EPA/FISH OIL 1,000 MG CAPSULE PO SCH (08:04)
[2020-09-09] MEDS: THIAMINE 100 MG TABLET PO SCH (08:04)
[2020-09-09] MEDS: DIVALPROEX SODIUM 500 MG ER TABLET PO SCH ×3 (08:04→16:40)
[2020-09-09] MEDS ORDERED: FOLI0.4T92 PO (09:09)
[2020-09-09 09:15] VITALS: BP 166/79
[2020-09-09] MEDS ORDERED: LISI-662 PO (09:23)
[2020-09-09 11:19] LABS: GLUCOMETER DEV NAME(LOC) 3E.I 2; GLUCOSE,POINT OF CARE 197 MG/DL (70-110)
[2020-09-09 16:00] VITALS: BP 124/71
[2020-09-09 16:52] LABS: GLUCOMETER DEV NAME(LOC) 3E.I 2; GLUCOSE,POINT OF CARE 182 MG/DL (70-110)
[2020-09-09] MEDS: OLANZapine 10 MG RAPDIS TABLET PO SCH (20:28)
[2020-09-09 20:30] LABS: GLUCOMETER DEV NAME(LOC) 3E.I 2; GLUCOSE,POINT OF CARE 210 MG/DL (70-110)
[2020-09-10 05:19] VITALS: BP 129/60
[2020-09-10] MEDS: LEVOTHYROXINE SODIUM 125 MCG TABLET PO SCH (06:34)
[2020-09-10] MEDS: MetFORMIN HCL 500 MG TABLET PO SCH ×2 (06:36→17:28)
[2020-09-10] MEDS: INSULIN LISPRO 100 UNITS/ML SQ PRN ×3 (06:38→21:36)
[2020-09-10] MEDS: OMEGA-3/DHA/EPA/FISH OIL 1,000 MG CAPSULE PO SCH (08:54)
[2020-09-10] MEDS: LISINOPRIL 20 MG TABLET PO SCH (08:55)
[2020-09-10] MEDS: MULTIVITAMINS WITH MINERALS, THERAPEUTIC TABLET PO SCH (08:55)
[2020-09-10] MEDS: FLUoxetine HCL 20 MG CAPSULE PO SCH (08:55)
[2020-09-10] MEDS: DIVALPROEX SODIUM 500 MG ER TABLET PO SCH ×3 (08:55→17:11)
[2020-09-10] MEDS: MONTELUKAST SODIUM 10 MG TABLET PO SCH (08:56)
[2020-09-10] MEDS: SIMVASTATIN 40 MG TABLET PO SCH (08:56)
[2020-09-10] MEDS: TOLTERODINE TARTRATE 2 MG ER CAPSULE PO SCH (08:56)
[2020-09-10] MEDS: AMANTADINE HCL 100 MG CAPSULE PO SCH ×2 (08:57→17:11)
[2020-09-10] MEDS: FUROSEMIDE 20 MG TABLET PO SCH (08:59)
[2020-09-10 09:22] VITALS: BP 117/67
[2020-09-10 11:31] LABS: GLUCOMETER DEV NAME(LOC) 3E.I 2; GLUCOSE,POINT OF CARE 133 MG/DL (70-110)
[2020-09-10 11:31] LABS: GLUCOMETER DEV NAME(LOC) 3E.I 2; GLUCOSE,POINT OF CARE 169 MG/DL (70-110)
[2020-09-10 16:01] VITALS: BP 120/78
[2020-09-10 17:30] LABS: GLUCOMETER DEV NAME(LOC) 3E.I 2; GLUCOSE,POINT OF CARE 100 MG/DL (70-110)
[2020-09-10] MEDS: OLANZapine 10 MG RAPDIS TABLET PO SCH (20:34)
[2020-09-10 20:45] LABS: GLUCOMETER DEV NAME(LOC) 3E.I 2; GLUCOSE,POINT OF CARE 165 MG/DL (70-110)
[2020-09-10] MEDS: LORazepam 0.5 MG TABLET PO PRN (21:37)
[2020-09-11 00:12] VITALS: BP 131/60
[2020-09-11 06:04] LABS: GLUCOMETER DEV NAME(LOC) 3E.I 2; GLUCOSE,POINT OF CARE 115 MG/DL (70-110)
[2020-09-11] MEDS: LEVOTHYROXINE SODIUM 125 MCG TABLET PO SCH (06:33)
[2020-09-11] MEDS: MetFORMIN HCL 500 MG TABLET PO SCH ×2 (06:33→17:37)
[2020-09-11 08:00] VITALS: BP 143/102
[2020-09-11] MEDS: MULTIVITAMINS WITH MINERALS, THERAPEUTIC TABLET PO SCH (08:34)
[2020-09-11] MEDS: DIVALPROEX SODIUM 500 MG ER TABLET PO SCH ×3 (08:34→16:26)
[2020-09-11] MEDS: LISINOPRIL 20 MG TABLET PO SCH (08:35)
[2020-09-11] MEDS: SIMVASTATIN 40 MG TABLET PO SCH (08:35)
[2020-09-11] MEDS: OMEGA-3/DHA/EPA/FISH OIL 1,000 MG CAPSULE PO SCH (08:35)
[2020-09-11] MEDS: FLUoxetine HCL 20 MG CAPSULE PO SCH (08:35)
[2020-09-11] MEDS: AMANTADINE HCL 100 MG CAPSULE PO SCH ×2 (08:35→16:26)
[2020-09-11] MEDS: MONTELUKAST SODIUM 10 MG TABLET PO SCH (08:35)
[2020-09-11] MEDS: FUROSEMIDE 20 MG TABLET PO SCH (08:35)
[2020-09-11] MEDS: TOLTERODINE TARTRATE 2 MG ER CAPSULE PO SCH (08:36)
[2020-09-11 11:41] LABS: GLUCOMETER DEV NAME(LOC) 3E.I 2; GLUCOSE,POINT OF CARE 126 MG/DL (70-110)
[2020-09-11] MEDS: INSULIN LISPRO 100 UNITS/ML SQ PRN ×3 (11:46→21:26)
[2020-09-11 16:00] VITALS: BP 124/61
[2020-09-11 16:43] LABS: GLUCOMETER DEV NAME(LOC) 3E.I 2; GLUCOSE,POINT OF CARE 167 MG/DL (70-110)
[2020-09-11] MEDS: OLANZapine 10 MG RAPDIS TABLET PO SCH (20:05)
[2020-09-11 20:20] LABS: GLUCOMETER DEV NAME(LOC) 3E.I 2; GLUCOSE,POINT OF CARE 165 MG/DL (70-110)
[2020-09-12 06:21] LABS: GLUCOMETER DEV NAME(LOC) 3E.I 2; GLUCOSE,POINT OF CARE 105 MG/DL (70-110)
[2020-09-12] MEDS: LEVOTHYROXINE SODIUM 125 MCG TABLET PO SCH (06:35)
[2020-09-12] MEDS: MetFORMIN HCL 500 MG TABLET PO SCH ×2 (06:35→17:37)
[2020-09-12 08:42] VITALS: BP 131/72
[2020-09-12] MEDS: TOLTERODINE TARTRATE 2 MG ER CAPSULE PO SCH (08:51)
[2020-09-12] MEDS: LISINOPRIL 20 MG TABLET PO SCH (08:51)
[2020-09-12] MEDS: DIVALPROEX SODIUM 500 MG ER TABLET PO SCH ×3 (08:51→16:19)
[2020-09-12] MEDS: SIMVASTATIN 40 MG TABLET PO SCH (08:51)
[2020-09-12] MEDS: MONTELUKAST SODIUM 10 MG TABLET PO SCH (08:51)
[2020-09-12] MEDS: FUROSEMIDE 20 MG TABLET PO SCH (08:51)
[2020-09-12] MEDS: FLUoxetine HCL 20 MG CAPSULE PO SCH (08:51)
[2020-09-12] MEDS: OMEGA-3/DHA/EPA/FISH OIL 1,000 MG CAPSULE PO SCH (08:51)
[2020-09-12] MEDS: MULTIVITAMINS WITH MINERALS, THERAPEUTIC TABLET PO SCH (08:51)
[2020-09-12] MEDS: AMANTADINE HCL 100 MG CAPSULE PO SCH ×2 (08:51→16:19)
[2020-09-12 11:28] LABS: GLUCOMETER DEV NAME(LOC) 3E.I 2; GLUCOSE,POINT OF CARE 117 MG/DL (70-110)
[2020-09-12 16:30] VITALS: BP 159/88
[2020-09-12 16:42] LABS: GLUCOMETER DEV NAME(LOC) 3E.I 2; GLUCOSE,POINT OF CARE 157 MG/DL (70-110)
[2020-09-12] MEDS: INSULIN LISPRO 100 UNITS/ML SQ PRN (17:39)
[2020-09-12] MEDS: OLANZapine 10 MG RAPDIS TABLET PO SCH (20:13)
[2020-09-12 20:26] LABS: GLUCOMETER DEV NAME(LOC) 3E.I 2; GLUCOSE,POINT OF CARE 116 MG/DL (70-110)
[2020-09-13 02:55] VITALS: BP 124/68
[2020-09-13 06:11] LABS: GLUCOMETER DEV NAME(LOC) 3E.I 2; GLUCOSE,POINT OF CARE 111 MG/DL (70-110)
[2020-09-13] MEDS: LEVOTHYROXINE SODIUM 125 MCG TABLET PO SCH (07:22)
[2020-09-13] MEDS: MetFORMIN HCL 500 MG TABLET PO SCH ×2 (07:23→17:27)
[2020-09-13 08:00] VITALS: BP 84/53
[2020-09-13 09:30] VITALS: BP 133/89
[2020-09-13] MEDS: FUROSEMIDE 20 MG TABLET PO SCH (09:45)
[2020-09-13] MEDS: LISINOPRIL 20 MG TABLET PO SCH (09:45)
[2020-09-13] MEDS: FLUoxetine HCL 20 MG CAPSULE PO SCH (09:45)
[2020-09-13] MEDS: AMANTADINE HCL 100 MG CAPSULE PO SCH ×2 (09:46→17:06)
[2020-09-13] MEDS: MULTIVITAMINS WITH MINERALS, THERAPEUTIC TABLET PO SCH (09:46)
[2020-09-13] MEDS: OMEGA-3/DHA/EPA/FISH OIL 1,000 MG CAPSULE PO SCH (09:46)
[2020-09-13] MEDS: DIVALPROEX SODIUM 500 MG ER TABLET PO SCH ×3 (09:46→17:06)
[2020-09-13] MEDS: SIMVASTATIN 40 MG TABLET PO SCH (09:46)
[2020-09-13] MEDS: MONTELUKAST SODIUM 10 MG TABLET PO SCH (09:46)
[2020-09-13] MEDS: TOLTERODINE TARTRATE 2 MG ER CAPSULE PO SCH (09:46)
[2020-09-13] MEDS: INSULIN LISPRO 100 UNITS/ML SQ PRN ×3 (11:50→21:35)
[2020-09-13 16:00] VITALS: BP_SYST 110; BP_SYST 133; BP_DIAS 65; BP_DIAS 68
[2020-09-13 16:40] LABS: GLUCOMETER DEV NAME(LOC) 3E.I 2; GLUCOSE,POINT OF CARE 167 MG/DL (70-110)
[2020-09-13 17:22] LABS: GLUCOMETER DEV NAME(LOC) 3E.I 2; GLUCOSE,POINT OF CARE 171 MG/DL (70-110)
[2020-09-13] MEDS: OLANZapine 10 MG RAPDIS TABLET PO SCH (21:14)
[2020-09-13 21:36] LABS: GLUCOMETER DEV NAME(LOC) 3E.I 2; GLUCOSE,POINT OF CARE 153 MG/DL (70-110)
[2020-09-14 05:37] LABS: GLUCOMETER DEV NAME(LOC) 3E.I 2; GLUCOSE,POINT OF CARE 114 MG/DL (70-110)
[2020-09-14] MEDS: LEVOTHYROXINE SODIUM 125 MCG TABLET PO SCH (07:02)
[2020-09-14] MEDS: MetFORMIN HCL 500 MG TABLET PO SCH ×2 (07:02→17:29)
[2020-09-14] MEDS: INSULIN LISPRO 100 UNITS/ML SQ PRN ×4 (07:06→21:46)
[2020-09-14] MEDS: DIVALPROEX SODIUM 500 MG ER TABLET PO SCH ×3 (08:38→16:40)
[2020-09-14] MEDS: OMEGA-3/DHA/EPA/FISH OIL 1,000 MG CAPSULE PO SCH (08:38)
[2020-09-14] MEDS: FLUoxetine HCL 20 MG CAPSULE PO SCH (08:38)
[2020-09-14] MEDS: MULTIVITAMINS WITH MINERALS, THERAPEUTIC TABLET PO SCH (08:39)
[2020-09-14] MEDS: FUROSEMIDE 20 MG TABLET PO SCH (08:39)
[2020-09-14] MEDS: TOLTERODINE TARTRATE 2 MG ER CAPSULE PO SCH (08:40)
[2020-09-14] MEDS: MONTELUKAST SODIUM 10 MG TABLET PO SCH (08:40)
[2020-09-14] MEDS: AMANTADINE HCL 100 MG CAPSULE PO SCH ×2 (08:40→16:40)
[2020-09-14] MEDS: SIMVASTATIN 40 MG TABLET PO SCH (08:43)
[2020-09-14] MEDS: LISINOPRIL 20 MG TABLET PO SCH (08:44)
[2020-09-14 08:45] VITALS: BP 108/54
[2020-09-14 11:40] LABS: GLUCOMETER DEV NAME(LOC) 3E.I 2; GLUCOSE,POINT OF CARE 236 MG/DL (70-110)
[2020-09-14 16:00] VITALS: BP 123/73
[2020-09-14 16:54] LABS: GLUCOMETER DEV NAME(LOC) 3E.I 2; GLUCOSE,POINT OF CARE 132 MG/DL (70-110)
[2020-09-14] MEDS: OLANZapine 10 MG RAPDIS TABLET PO SCH (20:29)
[2020-09-15] MEDS: MetFORMIN HCL 500 MG TABLET PO SCH ×2 (06:58→17:23)
[2020-09-15] MEDS: LEVOTHYROXINE SODIUM 125 MCG TABLET PO SCH (06:58)
[2020-09-15] MEDS: INSULIN LISPRO 100 UNITS/ML SQ PRN ×3 (07:02→21:40)
[2020-09-15 08:25] LABS: GLUCOMETER DEV NAME(LOC) 3E.I 2; GLUCOSE,POINT OF CARE 199 MG/DL (70-110)
[2020-09-15 08:26] LABS: GLUCOMETER DEV NAME(LOC) 3E.I 2; GLUCOSE,POINT OF CARE 121 MG/DL (70-110)
[2020-09-15] MEDS: OMEGA-3/DHA/EPA/FISH OIL 1,000 MG CAPSULE PO SCH (08:40)
[2020-09-15] MEDS: FLUoxetine HCL 20 MG CAPSULE PO SCH (08:40)
[2020-09-15] MEDS: DIVALPROEX SODIUM 500 MG ER TABLET PO SCH ×3 (08:40→16:34)
[2020-09-15] MEDS: LISINOPRIL 20 MG TABLET PO SCH (08:41)
[2020-09-15] MEDS: MULTIVITAMINS WITH MINERALS, THERAPEUTIC TABLET PO SCH (08:41)
[2020-09-15] MEDS: SIMVASTATIN 40 MG TABLET PO SCH (08:41)
[2020-09-15] MEDS: AMANTADINE HCL 100 MG CAPSULE PO SCH ×2 (08:41→16:34)
[2020-09-15] MEDS: FUROSEMIDE 20 MG TABLET PO SCH (08:41)
[2020-09-15] MEDS: TOLTERODINE TARTRATE 2 MG ER CAPSULE PO SCH (08:42)
[2020-09-15] MEDS: MONTELUKAST SODIUM 10 MG TABLET PO SCH (08:42)
[2020-09-15 09:00] VITALS: BP 174/82
[2020-09-15 12:01] LABS: GLUCOMETER DEV NAME(LOC) 3E.I 2; GLUCOSE,POINT OF CARE 134 MG/DL (70-110)
[2020-09-15 16:00] VITALS: BP 116/75
[2020-09-15 17:18] LABS: GLUCOMETER DEV NAME(LOC) 3E.I 2; GLUCOSE,POINT OF CARE 101 MG/DL (70-110)
[2020-09-15] MEDS: OLANZapine 10 MG RAPDIS TABLET PO SCH (20:28)
[2020-09-15 20:42] LABS: GLUCOMETER DEV NAME(LOC) 3E.I 2; GLUCOSE,POINT OF CARE 283 MG/DL (70-110)
[2020-09-16 06:05] LABS: GLUCOMETER DEV NAME(LOC) 3E.I 2; GLUCOSE,POINT OF CARE 148 MG/DL (70-110)
[2020-09-16] MEDS: LEVOTHYROXINE SODIUM 125 MCG TABLET PO SCH (06:54)
[2020-09-16] MEDS: MetFORMIN HCL 500 MG TABLET PO SCH ×2 (06:54→17:38)
[2020-09-16] MEDS: INSULIN LISPRO 100 UNITS/ML SQ PRN ×2 (06:55→21:31)
[2020-09-16 08:00] VITALS: BP 137/59
[2020-09-16] MEDS: AMANTADINE HCL 100 MG CAPSULE PO SCH ×2 (09:05→17:02)
[2020-09-16] MEDS: FLUoxetine HCL 20 MG CAPSULE PO SCH (09:05)
[2020-09-16] MEDS: MULTIVITAMINS WITH MINERALS, THERAPEUTIC TABLET PO SCH (09:05)
[2020-09-16] MEDS: FUROSEMIDE 20 MG TABLET PO SCH (09:05)
[2020-09-16] MEDS: LISINOPRIL 20 MG TABLET PO SCH (09:05)
[2020-09-16] MEDS: SIMVASTATIN 40 MG TABLET PO SCH (09:05)
[2020-09-16] MEDS: OMEGA-3/DHA/EPA/FISH OIL 1,000 MG CAPSULE PO SCH (09:05)
[2020-09-16] MEDS: DIVALPROEX SODIUM 500 MG ER TABLET PO SCH ×3 (09:06→17:02)
[2020-09-16] MEDS: TOLTERODINE TARTRATE 2 MG ER CAPSULE PO SCH (09:06)
[2020-09-16] MEDS: MONTELUKAST SODIUM 10 MG TABLET PO SCH (09:06)
[2020-09-16 12:14] LABS: GLUCOMETER DEV NAME(LOC) 3E.I 2; GLUCOSE,POINT OF CARE 101 MG/DL (70-110)
[2020-09-16 17:00] VITALS: BP 135/75
[2020-09-16 17:33] LABS: GLUCOMETER DEV NAME(LOC) 3E.I 2; GLUCOSE,POINT OF CARE 116 MG/DL (70-110)
[2020-09-16] MEDS: OLANZapine 10 MG RAPDIS TABLET PO SCH (20:26)
[2020-09-16 21:33] LABS: GLUCOMETER DEV NAME(LOC) 3E.I 2; GLUCOSE,POINT OF CARE 166 MG/DL (70-110)
[2020-09-16] MEDS: GuaiFENesin/D-METHORPHAN [SUGAR-FREE] 200-20MG/10 ML SYRUP UDCUP PO PRN (22:46)
[2020-09-17 01:09] VITALS: BP 123/55
[2020-09-17] MEDS: GuaiFENesin/D-METHORPHAN [SUGAR-FREE] 200-20MG/10 ML SYRUP UDCUP PO PRN (04:46)
[2020-09-17 05:31] LABS: GLUCOMETER DEV NAME(LOC) 3E.I 2; GLUCOSE,POINT OF CARE 113 MG/DL (70-110)
[2020-09-17] MEDS: LEVOTHYROXINE SODIUM 125 MCG TABLET PO SCH (06:58)
[2020-09-17] MEDS: MetFORMIN HCL 500 MG TABLET PO SCH (06:58)
[2020-09-17] MEDS: INSULIN LISPRO 100 UNITS/ML SQ PRN ×2 (07:08→12:25)
[2020-09-17 08:44] VITALS: BP 113/72
[2020-09-17] MEDS: TOLTERODINE TARTRATE 2 MG ER CAPSULE PO SCH (09:01)
[2020-09-17] MEDS: FUROSEMIDE 20 MG TABLET PO SCH (09:01)
[2020-09-17] MEDS: OMEGA-3/DHA/EPA/FISH OIL 1,000 MG CAPSULE PO SCH (09:01)
[2020-09-17] MEDS: MONTELUKAST SODIUM 10 MG TABLET PO SCH (09:01)
[2020-09-17] MEDS: FLUoxetine HCL 20 MG CAPSULE PO SCH (09:01)
[2020-09-17] MEDS: DIVALPROEX SODIUM 500 MG ER TABLET PO SCH ×2 (09:01→12:08)
[2020-09-17] MEDS: MULTIVITAMINS WITH MINERALS, THERAPEUTIC TABLET PO SCH (09:01)
[2020-09-17] MEDS: SIMVASTATIN 40 MG TABLET PO SCH (09:02)
[2020-09-17] MEDS: AMANTADINE HCL 100 MG CAPSULE PO SCH (09:02)
[2020-09-17] MEDS: LISINOPRIL 20 MG TABLET PO SCH (09:02)
[2020-09-17 11:30] LABS: GLUCOMETER DEV NAME(LOC) 3E.I 2; GLUCOSE,POINT OF CARE 101 MG/DL (70-110)
== END 2020-09-17 12:10 | disposition home or self-care (01) | DRG 885 ==
LOC: EMS 14:00 → 3EI 17:41
PROVIDERS: ADMIT Psychiatry & Neurology Psychiatry; ATTEND Psychiatry & Neurology Psychiatry
DX: F20.9 Schizophrenia, unspecified (principal); E11.65 Type 2 diabetes mellitus with hyperglycemia; I10 Essential (primary) hypertension; E78.00 Pure hypercholesterolemia, unspecified; E03.9 Hypothyroidism, unspecified; K59.00 Constipation, unspecified; E78.5 Hyperlipidemia, unspecified; G47.00 Insomnia, unspecified; F41.9 Anxiety disorder, unspecified; Z20.828 Contact with and (suspected) exposure to other viral communicable diseases; Z85.828 Personal history of other malignant neoplasm of skin; Z55.9 Problems related to education and literacy, unspecified; Z59.9 Problem related to housing and economic circumstances, unspecified; Z65.3 Problems related to other legal circumstances
CPT/HCPCS: 82607; 83036; 84439; 84443; 86592; 87426; 97162; 97165; 97535; G0480